=== PATIENT | female | born 1985 | race Caucasian/White ===

== ENCOUNTER 2018-02-16 11:19 | Inpatient (IN) ==
[2018-02-16 11:30] VITALS: BMI 24.9
[2018-02-16 11:49] LABS: BILIRUBIN,URINE NEGATIVE (NEGATIVE); BLOOD/HEMOGLOBIN,URINE 4+ (NEGATIVE); GLUCOSE, URINE NEGATIVE (NEGATIVE); KETONES,URINE 4+ (NEGATIVE); LEUKOCYTE ESTERASE ,URINE 2+ (NEGATIVE); NITRITES,URINE NEGATIVE (NEGATIVE); PROTEIN,URINE 3+ (NEGATIVE); UROBILINOGEN,URINE NORMAL (NORMAL)
[2018-02-16] MEDS ORDERED: ZOFRAN INJ 4 MG VIAL ONE (11:51)
[2018-02-16] MEDS ORDERED: NS 1000 ML 1,000 ML ONE ×2 (11:51→13:12)
[2018-02-16] MEDS ORDERED: ZOFRAN INJ 4 MG VIAL IVP ONE (11:52)
[2018-02-16] MEDS ORDERED: NS 1000 ML 1,000 ML IV ONE ×2 (11:52→13:09)
--- NOTE | 2018-02-16 11:53 | DR.GENAD ---
HPI - PCP Primary Care Physician: NO DOCTOR - Complaint/Symptoms Chief Complaint:: FEVER AND NAUSEA SINCE LAST TUESDAY. STARTED NEW CONTROL MEDS LAST TUESDAY NIGHT ALSO. ALSO HAS PRESSURE WITH URINATION - Nurses notes reviewed Nurses Notes Review: Yes - Source History Provided: Patient - Mode of Arrival Mode of Arrival: Ambulatory - Timing Onset of Chief Complaint: 02/12/18 Came on: Suddenly - Duration Duration: Constant Duration: Days - Severity Severity: Moderate PMH - PMH Past Medical History: No Past Surgical History: Yes Surgical History: HUSBANDRY PERSON Surgery, Tonsillectomy - Family History History of Family Medical Conditions: Yes Family Medical History: Diabetes Mellitus, Cancer, Coronary Artery Disease, Hypertension - Social History Type of Tobacco Use: None Alcohol Use: Rarely Do you use any recreational Drugs:: No Lives With: Family Lives Where: Home - infectious screening In the last 2 months have you had wt loss of >10#?: NO Have you had fever, night sweats or hemotysis?: No Have you traveled outside the country in the last 6 months?: No Isolation: Standard PE - Vital Signs Vitals: Temperature 98.8 F Pulse Rate 105 Respiratory Rate 14 Blood Pressure 109/58 O2 Sat by Pulse Oximetry 98 ROR - Labs Reviewed Result Diagrams: 02/16/18 11:55 02/16/18 11:55 Laboratory: WBC 15.9 X10^3/uL (3.6-10.0) H 02/16/18 11:55 RBC 4.48 X10^6/uL (3.5-5.4) 02/16/18 11:55 Hgb 12.8 g/dL (12.0-16.0) 02/16/18 11:55 Hct 37.4 % (36.0-47.0) 02/16/18 11:55 MCV 83.4 fL (80.0-100.0) 02/16/18 11:55 MCH 28.5 pg (27.0-34.0) 02/16/18 11:55 MCHC 34.2 g/dL (33.0-35.0) 02/16/18 11:55 RDW 12.9 % (11.6-16.5) 02/16/18 11:55 Plt Count 379 X10^3/uL (150.0-450.0) 02/16/18 11:55 MPV 9.7 fL (7.4-11.0) 02/16/18 11:55 Neut % (Auto) 77.7 % (42.0-75.0) H 02/16/18 11:55 Lymph % (Auto) 17.1 % (21.0-51.0) L 02/16/18 11:55 [place] % (Auto) 3.7 % (0.0-13.0) 02/16/18 11:55 Eos % (Auto) 0.6 % (0.9-2.9) L 02/16/18 11:55 Baso % (Auto) 0.9 % (0.2-1.0) 02/16/18 11:55 Neut # (Auto) 12.3 x10^3/uL (2.2-4.8) H 02/16/18 11:55 Lymph # (Auto) 2.7 X10^3/uL (1.3-2.9) 02/16/18 11:55 [place] # (Auto) 0.6 x10^3/uL (0.3-0.8) 02/16/18 11:55 Eos # (Auto) 0.1 x10^3/uL (0.0-0.2) 02/16/18 11:55 Baso # (Auto) 0.1 X10^3/uL (0.0-0.1) 02/16/18 11:55 Absolute Nucleated RBC 0.0 /100WBC 02/16/18 11:55 Sodium 138 mmol/L (136-145) 02/16/18 11:55 Corrected Sodium TNP 02/16/18 11:55 Potassium 3.5 mmol/L (3.5-5.1) 02/16/18 11:55 Chloride 102 mmol/L (98-107) 02/16/18 11:55 Carbon Dioxide 23.4 mmol/L (21-32) 02/16/18 11:55 BUN 18 mg/dL (7-18) 02/16/18 11:55 Creatinine 0.92 mg/dL (0.55-1.02) 02/16/18 11:55 Est GFR (MDRD) Af Amer > 60 (>60) 02/16/18 11:55 Est GFR (MDRD) Non-Af > 60 (>60) 02/16/18 11:55 Glucose 86 mg/dL (65-99) 02/16/18 11:55 Calcium 8.3 mg/dL (8.5-10.1) L 02/16/18 11:55 Corrected Calcium TNP 02/16/18 11:55 Total Bilirubin 0.30 mg/dL (0.2-1.0) 02/16/18 11:55 AST 8 Units/L (15-37) L 02/16/18 11:55 ALT 18 Units/L (12-78) 02/16/18 11:55 Alkaline Phosphatase 94 Units/L (46-116) 02/16/18 11:55 Total Protein 8.5 g/dL (6.4-8.2) H 02/16/18 11:55 Albumin 3.5 g/dL (3.4-5.0) 02/16/18 11:55 Globulin 5.0 g/dL (2.5-4.5) H 02/16/18 11:55 Albumin/Globulin Ratio 0.7 Ratio (1.1-2.1) L 02/16/18 11:55 Amylase 75 Units/L (25-115) 02/16/18 11:55 Lipase 237 Units/L (73-393) 02/16/18 11:55 HCG, Qual Negative <10 mIU/mL 02/16/18 11:55 Specimen Type Clean catch urine 02/16/18 11:43 Urine Color Yellow (YELLOW) 02/16/18 11:43 Urine Appearance Hazy (CLEAR) 02/16/18 11:43 Urine pH 5.0 (5.0 - 8.0) 02/16/18 11:43 Ur Specific [place] 1.020 (1.000-1.030) 02/16/18 11:43 Urine Protein 3+ (NEGATIVE) 02/16/18 11:43 Urine Glucose (UA) Negative (NEGATIVE) 02/16/18 11:43 Urine Ketones 4+ (NEGATIVE) 02/16/18 11:43 Urine Occult Blood 4+ (NEGATIVE) 02/16/18 11:43 Urine Nitrite Negative (NEGATIVE) 02/16/18 11:43 Urine Bilirubin Negative (NEGATIVE) 02/16/18 11:43 Urine Urobilinogen Normal (NORMAL) 02/16/18 11:43 Ur Leukocyte Esterase 2+ (NEGATIVE) 02/16/18 11:43 Urine RBC 10-20 /HPF (NONE SEEN) 02/16/18 11:43 Urine WBC 3-5 /HPF (NONE SEEN) 02/16/18 11:43 Ur Squamous Epith Cells Few /HPF (NEGATIVE) 02/16/18 11:43 Urine Bacteria Trace /HPF (NEGATIVE) 02/16/18 11:43 Ur Culture Indicated? No/not indicated 02/16/18 11:43 - Discharge Plan Condition: Stable - Follow ups/Referrals Follow ups/Referrals: NFD,None [Primary Care Provider] - 3 days - Instructions
[2018-02-16 11:57] LABS: APPEARANCE,URINE HAZY (CLEAR); BACTERIA,URINE TRACE /HPF (NEGATIVE); COLOR,URINE YELLOW (YELLOW); SQUAMOUS EPITHELIAL CELL,UR FEW /HPF (NEGATIVE)
[2018-02-16 12:24] LABS: SERUM PREGNANCY TEST, QUAL NEGATIVE <10 mIU/mL
[2018-02-16 12:25] LABS: BASOPHILS # (AUTO) 0.1 X10^3/uL (0.0-0.1); BASOPHILS % (AUTO) 0.9 % (0.2-1.0); EOSINOPHILS # (AUTO) 0.1 x10^3/uL (0.0-0.2); EOSINOPHILS % (AUTO) 0.6 % (0.9-2.9); HEMATOCRIT 37.4 % (36.0-47.0); HEMOGLOBIN 12.8 g/dL (12.0-16.0); LYMPHOCYTES # (AUTO) 2.7 X10^3/uL (1.3-2.9); LYMPHOCYTES % (AUTO) 17.1 % (21.0-51.0); MEAN CORPUSCULAR HEMOGLOBIN 28.5 pg (27.0-34.0); MEAN CORPUSCULAR HGB CONC 34.2 g/dL (33.0-35.0); MEAN CORPUSCULAR VOLUME 83.4 fL (80.0-100.0); MEAN PLATELET VOLUME 9.7 fL (7.4-11.0); MONOCYTES # (AUTO) 0.6 x10^3/uL (0.3-0.8); MONOCYTES % (AUTO) 3.7 % (0.0-13.0); NEUTROPHILS # (AUTO) 12.3 x10^3/uL (2.2-4.8); NEUTROPHILS % (AUTO) 77.7 % (42.0-75.0); PLATELET COUNT 379 X10^3/uL (150.0-450.0); RED BLOOD COUNT 4.48 X10^6/uL (3.5-5.4); RED CELL DISTRIBUTION WIDTH 12.9 % (11.6-16.5); WHITE BLOOD COUNT 15.9 X10^3/uL (3.6-10.0)
[2018-02-16 12:34] LABS: ALANINE AMINOTRANSFERASE 18 Units/L (12-78); ALBUMIN 3.5 g/dL (3.4-5.0); ALKALINE PHOSPHATASE 94 Units/L (46-116); AMYLASE 75 Units/L (25-115); ASPARTATE AMINO TRANSFERASE 8 Units/L (15-37); BLOOD UREA NITROGEN 18 mg/dL (7-18); CALCIUM 8.3 mg/dL (8.5-10.1); CARBON DIOXIDE 23.4 mmol/L (21-32); CHLORIDE 102 mmol/L (98-107); CREATININE 0.92 mg/dL (0.55-1.02); LIPASE 237 Units/L (73-393); SODIUM 138 mmol/L (136-145); TOTAL PROTEIN 8.5 g/dL (6.4-8.2); eGFR NON BLACK RACES > 60 (>60)
--- NOTE | 2018-02-16 13:49 | CT ---
CT abdomen and pelvis without contrast Indication: Fever and nausea since last Tuesday. Comparison: None Technique: CT images of the abdomen and pelvis were obtained without contrast. Automatic exposure con trol was utilized. Findings: Aside from minimal dependent atelectasis, the lung bases are clear. No acute skeletal abnor mality. Evaluation of the abdominal pelvic viscera is limited without contrast. Accounting for this, the live r, gallbladder, spleen, stomach, duodenum, pancreas, adrenals, and kidneys are unremarkable. No urete ral stones are seen. No significant thickening or dilatation of the lower GI tract. The visualized ap pendix appears within normal limits. The uterus and ovaries are noted. The urinary bladder and rectum are unremarkable. A few shotty right lower quadrant mesenteric lymph nodes are noted. For example, t here is a lymph node on axial image 60 measuring 9 mm in short axis. No bulky adenopathy or free flui d. Impression: Shotty right lower quadrant mesenteric lymph nodes are nonspecific, but can be associated with mesent price adenitis. Correlation recommended. The appendix is normal. Otherwise unremarkable noncontrast CT of the abdomen and pelvis. Reported By:
[2018-02-16] MEDS ORDERED: PEPCID 20 MG IV PREMIX* 20 MG/50 ML BAG IV PRN (15:47)
[2018-02-16] MEDS ORDERED: ZOFRAN INJ 4 MG VIAL IVP PRN (15:47)
[2018-02-16] MEDS ORDERED: ZOSYN VIAL 4.5 GRAMS IV ONE (16:56)
[2018-02-16] MEDS ORDERED: NS 100 ML IV + SPIKE MINIBAG* 100 ML IV ONE (16:57)
[2018-02-16] MEDS: TYLENOL 325 MG TAB PO PRN (17:00)
[2018-02-16] MEDS: NS 1000 ML 1,000 ML IV SCH (17:00)
[2018-02-16] MEDS: ZOSYN VIAL 4.5 GRAMS 4.5 G in NS 100 ML IV + SPIKE MINIBAG* 100 ML IV SCH ×2 (17:00→21:12)
[2018-02-16] MEDS: TORADOL 30 MG VIAL IVP PRN (17:00)
[2018-02-16 17:14] LABS: ALANINE AMINOTRANSFERASE 9 Units/L (12-78); ALKALINE PHOSPHATASE 80 Units/L (46-116); ASPARTATE AMINO TRANSFERASE 9 Units/L (15-37); BLOOD UREA NITROGEN 16 mg/dL (7-18); CALCIUM 7.5 mg/dL (8.5-10.1); CARBON DIOXIDE 18.6 mmol/L (21-32); CHLORIDE 105 mmol/L (98-107); COR CA(FOR HYPOALB) 8.3 mg/dL (8.5-10.1); CREATININE 0.86 mg/dL (0.55-1.02); SODIUM 138 mmol/L (136-145); TOTAL PROTEIN 7.1 g/dL (6.4-8.2); eGFR NON BLACK RACES > 60 (>60)
[2018-02-17 14:09] LABS: ALANINE AMINOTRANSFERASE 14 Units/L (12-78); ALBUMIN 2.6 g/dL (3.4-5.0); ALKALINE PHOSPHATASE 70 Units/L (46-116); ASPARTATE AMINO TRANSFERASE 10 Units/L (15-37); BASOPHILS # (AUTO) 0.1 X10^3/uL (0.0-0.1); BASOPHILS % (AUTO) 0.6 % (0.2-1.0); BLOOD UREA NITROGEN 11 mg/dL (7-18); CALCIUM 7.3 mg/dL (8.5-10.1); CARBON DIOXIDE 23.8 mmol/L (21-32); CHLORIDE 109 mmol/L (98-107); COR CA(FOR HYPOALB) 8.4 mg/dL (8.5-10.1); CREATININE 0.87 mg/dL (0.55-1.02); EOSINOPHILS # (AUTO) 0.4 x10^3/uL (0.0-0.2); EOSINOPHILS % (AUTO) 3.2 % (0.9-2.9); HEMATOCRIT 32.1 % (36.0-47.0); HEMOGLOBIN 10.8 g/dL (12.0-16.0); LYMPHOCYTES # (AUTO) 3.8 X10^3/uL (1.3-2.9); LYMPHOCYTES % (AUTO) 31.9 % (21.0-51.0); MEAN CORPUSCULAR HEMOGLOBIN 28.5 pg (27.0-34.0); MEAN CORPUSCULAR HGB CONC 33.7 g/dL (33.0-35.0); MEAN CORPUSCULAR VOLUME 84.7 fL (80.0-100.0); MONOCYTES # (AUTO) 1.1 x10^3/uL (0.3-0.8); MONOCYTES % (AUTO) 9.4 % (0.0-13.0); NEUTROPHILS # (AUTO) 6.6 x10^3/uL (2.2-4.8); NEUTROPHILS % (AUTO) 54.9 % (42.0-75.0); PLATELET COUNT 335 X10^3/uL (150.0-450.0); RED BLOOD COUNT 3.79 X10^6/uL (3.5-5.4); RED CELL DISTRIBUTION WIDTH 12.9 % (11.6-16.5); SODIUM 141 mmol/L (136-145); TOTAL PROTEIN 6.3 g/dL (6.4-8.2); eGFR NON BLACK RACES > 60 (>60)
[2018-02-17] MEDS: NS 1000 ML 1,000 ML IV SCH ×2 (14:56→21:07)
[2018-02-17] MEDS: ZOSYN VIAL 4.5 GRAMS 4.5 G in NS 100 ML IV + SPIKE MINIBAG* 100 ML IV SCH ×3 (15:23→21:07)
[2018-02-17 16:01] LABS: STOOL FOR WBC POSITIVE (NEGATIVE)
[2018-02-17 16:25] LABS: CRYPTOSPORIDIUM PARVUM ANTIGEN NEGATIVE (NEGATIVE); GIARDIA LAMBLIA ANTIGEN NEGATIVE (NEGATIVE)
[2018-02-17] MEDS: TORADOL 30 MG VIAL IVP PRN (16:42)
[2018-02-18] MEDS: ZOSYN VIAL 4.5 GRAMS 4.5 G in NS 100 ML IV + SPIKE MINIBAG* 100 ML IV SCH ×3 (05:01→21:36)
--- NOTE | 2018-02-18 06:35 | DR.H&P ---
H&P - History & Physical for Day of: H&P Date: 02/16/18 - Chief Complaint Chief Complaint: NVD, ABDOMINAL PAIN, WEAKNESS - History of Present Illness History of Present Illness: 32 WF ER ADMISSION AFTER PRESENTING WITH CO ABDOMINAL PAIN, NVD AND FEVER. PT STATES SHE FELT ILL FOR SEVERAL DAYS, WEAKNESS , LOW GRADE FEVER FATIGUE THEN PROGRESSED TO ABDOMINAL PAIN, NVD. PT DENIES ANY PMH OF INFLAMMATORY BOWEL DISEASE, HOWEVER HAS HAD "STOMACH PROBLEMS" FOR YEARS NO COLONSCOPY OR EGD. PT OTHERWISE HEALTHY. ABNORMAL CT ABD. PT ADMITTED FOR IV ATBX AND FURTHER EVALUATION FOR ACUTE ILLNESS. - Past Medical History Additional Medical History: IBS - Past Surgical History Surgical History: [employer] Surgery, Tonsillectomy - Family History Family Medical History: Diabetes Mellitus, Cancer, Coronary Artery Disease, Hypertension - Social History Does patient currently use any type of tobacco product: No Have you used tobacco products in the last 12 months: No Type of Tobacco Use: None Does any household member use tobacco: No Alcohol Use: None Drug Use: Prescription Drugs - Medications Home Medications: NK 02/16/18 [History Confirmed 02/16/18] - Review of Systems Constitutional: Fever, Weakness, Malaise Eyes: No Symptoms Reported ENT: No Symptoms Reported Respiratory: No Symptoms Reported Cardiovascular: No Symptoms Reported Gastrointestinal: Nausea, Vomiting, Abdominal Pain, Diarrhea Genitourinary: No Symptoms Reported Musculoskeletal: No Symptoms Reported Skin: No Symptoms Reported Neurological: Weakness - Physical Exam Vital Signs: Temperature 99.2 F Pulse Rate [Right Brachial] 78 Pulse Rate 89 Respiratory Rate 20 Blood Pressure [Right Arm] 118/66 Blood Pressure 109/58 O2 Sat by Pulse Oximetry 97 Oriented: Normal Eyes: Normal Ear: Normal Nose: Normal Throat: Normal Respiratory: Clear Throughout Cardiovascular: Normal : Normal Auscultation: Bowel Sounds: Normal Palpation: Normal Skin: Normal Musculoskeletal: Normal Psychiatric: Normal Speech Pattern: Clear, Appropriate - Assessment/Plan (1) Abdominal pain Status: Acute Plan: ADMIT, IV ATBX, IV HYDRATION. ADMISSION LABS CBC CMP, REPEAT AM LABS. PAIN AND NAUSEA CONTROL. UA, SED RATE CRP. STOOL STUDIES (2) Nausea & vomiting Status: Acute (3) Diarrhea Status: Acute - Allergies Allergies/Adverse Reactions: Allergies Allergy/AdvReac Type Severity Reaction Status Date / Time bacitracin AdvReac Verified 02/16/18 11:31 neomycin AdvReac Verified 02/16/18 11:31
[2018-02-18 06:37] LABS: BASOPHILS # (AUTO) 0.1 X10^3/uL (0.0-0.1); BASOPHILS % (AUTO) 0.8 % (0.2-1.0); EOSINOPHILS # (AUTO) 0.4 x10^3/uL (0.0-0.2); EOSINOPHILS % (AUTO) 3.3 % (0.9-2.9); HEMATOCRIT 29.3 % (36.0-47.0); LYMPHOCYTES # (AUTO) 3.4 X10^3/uL (1.3-2.9); LYMPHOCYTES % (AUTO) 28.8 % (21.0-51.0); MEAN CORPUSCULAR HEMOGLOBIN 28.6 pg (27.0-34.0); MEAN CORPUSCULAR HGB CONC 34.3 g/dL (33.0-35.0); MEAN CORPUSCULAR VOLUME 83.5 fL (80.0-100.0); MEAN PLATELET VOLUME 10.3 fL (7.4-11.0); MONOCYTES # (AUTO) 0.7 x10^3/uL (0.3-0.8); MONOCYTES % (AUTO) 6.1 % (0.0-13.0); NEUTROPHILS # (AUTO) 7.1 x10^3/uL (2.2-4.8); PLATELET COUNT 301 X10^3/uL (150.0-450.0); RED BLOOD COUNT 3.51 X10^6/uL (3.5-5.4); RED CELL DISTRIBUTION WIDTH 13.2 % (11.6-16.5); WHITE BLOOD COUNT 11.7 X10^3/uL (3.6-10.0)
[2018-02-18 06:39] LABS: ALBUMIN 2.5 g/dL (3.4-5.0); ALKALINE PHOSPHATASE 65 Units/L (46-116); ASPARTATE AMINO TRANSFERASE 11 Units/L (15-37); BLOOD UREA NITROGEN 8 mg/dL (7-18); CHLORIDE 109 mmol/L (98-107); COR CA(FOR HYPOALB) 8.2 mg/dL (8.5-10.1); SODIUM 141 mmol/L (136-145); eGFR NON BLACK RACES > 60 (>60)
[2018-02-18 07:16] LABS: ALANINE AMINOTRANSFERASE 14 Units/L (12-78); CARBON DIOXIDE 22.4 mmol/L (21-32); CREATININE 0.91 mg/dL (0.55-1.02); TOTAL PROTEIN 6.1 g/dL (6.4-8.2)
--- NOTE | 2018-02-18 13:27 | PCM.PROG ---
Progress Note - Progress Note for Day of Date: 02/17/18 - Subjective Subjective: 32 WF ER ADMISSION ON 02/16 WITH NVD, WEAKNESS, DEHYDRATION. PT WBC IMPROVING, PT DENIES PAIN AND IMPROVING NAUSEA. PT CONTINUES WITH DIARRHEA. PT HAS STOOL STUDIES ORDERED. PLAN TO CONTINUE IV ATBX. - Past Medical Family Social History Past Med/Fam/Surg Hx: No changes since H&P Allergies: Allergies bacitracin Adverse Reaction (Verified 02/16/18 11:31) neomycin Adverse Reaction (Verified 02/16/18 11:31) - Vital Signs and I&O's Vital Signs: Temperature 98.9 F Pulse Rate [Right Brachial] 70 Pulse Rate 89 Respiratory Rate 20 Blood Pressure [Right Arm] 112/73 Blood Pressure 109/58 O2 Sat by Pulse Oximetry 98 Intake and Output: Intake & Output 02/16/18 02/17/18 02/18/18 02/19/18 11:59 11:59 11:59 11:59 Intake Total 1050 / 1050 3911 / 3911 Balance 1050 / 1050 3911 / 3911 - Physical Exam Oriented: Normal Eyes: Normal Ear: Normal Nose: Normal Throat: Normal Respiratory: Normal Cardiovascular: Normal : Normal Auscultation: Bowel Sounds: Normal Tenderness: LUQ, Mild Skin: Normal Musculoskeletal: Normal Psychiatric: Normal Speech Pattern: Clear, Appropriate - Laboratory and Diagnostics Result Diagrams: 02/18/18 04:33 02/18/18 04:33 Labs: 02/17/18 15:06 Stool Stool Culture - Preliminary 02/17/18 15:06 Stool - Final Laboratory WBC 11.7 X10^3/uL (3.6-10.0) H 02/18/18 04:33 RBC 3.51 X10^6/uL (3.5-5.4) 02/18/18 04:33 Hgb 10.0 g/dL (12.0-16.0) L 02/18/18 04:33 Hct 29.3 % (36.0-47.0) L 02/18/18 04:33 MCV 83.5 fL (80.0-100.0) 02/18/18 04:33 MCH 28.6 pg (27.0-34.0) 02/18/18 04:33 MCHC 34.3 g/dL (33.0-35.0) 02/18/18 04:33 RDW 13.2 % (11.6-16.5) 02/18/18 04:33 Plt Count 301 X10^3/uL (150.0-450.0) 02/18/18 04:33 MPV 10.3 fL (7.4-11.0) 02/18/18 04:33 Neut % (Auto) 61.0 % (42.0-75.0) 02/18/18 04:33 Lymph % (Auto) 28.8 % (21.0-51.0) 02/18/18 04:33 [place] % (Auto) 6.1 % (0.0-13.0) 02/18/18 04:33 Eos % (Auto) 3.3 % (0.9-2.9) H 02/18/18 04:33 Baso % (Auto) 0.8 % (0.2-1.0) 02/18/18 04:33 Neut # (Auto) 7.1 x10^3/uL (2.2-4.8) H 02/18/18 04:33 Lymph # (Auto) 3.4 X10^3/uL (1.3-2.9) H 02/18/18 04:33 [place] # (Auto) 0.7 x10^3/uL (0.3-0.8) 02/18/18 04:33 Eos # (Auto) 0.4 x10^3/uL (0.0-0.2) H 02/18/18 04:33 Baso # (Auto) 0.1 X10^3/uL (0.0-0.1) 02/18/18 04:33 Absolute Nucleated RBC 0.1 /100WBC 02/18/18 04:33 ESR 21 MM/HOUR (0-20) H 02/17/18 19:20 Sodium 141 mmol/L (136-145) 02/18/18 04:33 Corrected Sodium TNP 02/18/18 04:33 Potassium 3.5 mmol/L (3.5-5.1) 02/18/18 04:33 Chloride 109 mmol/L (98-107) H 02/18/18 04:33 Carbon Dioxide 22.4 mmol/L (21-32) 02/18/18 04:33 BUN 8 mg/dL (7-18) 02/18/18 04:33 Creatinine 0.91 mg/dL (0.55-1.02) 02/18/18 04:33 Est GFR (MDRD) Af Amer > 60 (>60) 02/18/18 04:33 Est GFR (MDRD) Non-Af > 60 (>60) 02/18/18 04:33 Glucose 95 mg/dL (65-99) 02/18/18 04:33 Calcium 7.0 mg/dL (8.5-10.1) L 02/18/18 04:33 Corrected Calcium 8.2 mg/dL (8.5-10.1) L 02/18/18 04:33 Total Bilirubin 0.30 mg/dL (0.2-1.0) 02/18/18 04:33 AST 11 Units/L (15-37) L 02/18/18 04:33 ALT 14 Units/L (12-78) 02/18/18 04:33 Alkaline Phosphatase 65 Units/L (46-116) 02/18/18 04:33 C-Reactive Protein 9.10 mg/L (0-3.0) H 02/17/18 19:20 Total Protein 6.1 g/dL (6.4-8.2) L 02/18/18 04:33 Albumin 2.5 g/dL (3.4-5.0) L 02/18/18 04:33 Globulin 3.6 g/dL (2.5-4.5) 02/18/18 04:33 Albumin/Globulin Ratio 0.7 Ratio (1.1-2.1) L 02/18/18 04:33 Amylase 75 Units/L (25-115) 02/16/18 11:55 Lipase 237 Units/L (73-393) 02/16/18 11:55 HCG, Qual Negative <10 mIU/mL 02/16/18 11:55 Specimen Type Clean catch urine 02/16/18 11:43 Urine Color Yellow (YELLOW) 02/16/18 11:43 Urine Appearance Hazy (CLEAR) 02/16/18 11:43 Urine pH 5.0 (5.0 - 8.0) 02/16/18 11:43 Ur Specific [place] 1.020 (1.000-1.030) 02/16/18 11:43 Urine Protein 3+ (NEGATIVE) 02/16/18 11:43 Urine Glucose (UA) Negative (NEGATIVE) 02/16/18 11:43 Urine Ketones 4+ (NEGATIVE) 02/16/18 11:43 Urine Occult Blood 4+ (NEGATIVE) 02/16/18 11:43 Urine Nitrite Negative (NEGATIVE) 02/16/18 11:43 Urine Bilirubin Negative (NEGATIVE) 02/16/18 11:43 Urine Urobilinogen Normal (NORMAL) 02/16/18 11:43 Ur Leukocyte Esterase 2+ (NEGATIVE) 02/16/18 11:43 Urine RBC 10-20 /HPF (NONE SEEN) 02/16/18 11:43 Urine WBC 3-5 /HPF (NONE SEEN) 02/16/18 11:43 Ur Squamous Epith Cells Few /HPF (NEGATIVE) 02/16/18 11:43 Urine Bacteria Trace /HPF (NEGATIVE) 02/16/18 11:43 Ur Culture Indicated? No/not indicated 02/16/18 11:43 Stool Description 20g soft brown stool 02/17/18 15:06 Stl Occult Blood (IFOB) Negative (NEGATIVE) 02/17/18 15:06 Stool for White Cells Positive (NEGATIVE) A 02/17/18 15:06 Stl C. diff Tox B Gene Negative (NEGATIVE) 02/17/18 15:06 Stl C. diff [id number] Negative (NEGATIVE) 02/17/18 15:06 Cryptosporid parvum Ag Negative (NEGATIVE) 02/17/18 15:06 E. histolytica Antigen Negative (NEGATIVE) 02/17/18 15:06 Giardia lamblia Ag Negative (NEGATIVE) 02/17/18 15:06 - Plan (1) Abdominal pain Status: Acute Plan: IV ATBX, IV HYDRATION. AM LABS CBC CMP,. PAIN AND NAUSEA CONTROL. UA, SED RATE CRP. STOOL STUDIES (2) Nausea & vomiting Status: Acute (3) Diarrhea Status: Acute
[2018-02-18] MEDS: NS 1000 ML 1,000 ML IV SCH (14:00)
[2018-02-19] MEDS: ZOSYN VIAL 4.5 GRAMS 4.5 G in NS 100 ML IV + SPIKE MINIBAG* 100 ML IV SCH ×3 (05:06→21:07)
[2018-02-19] MEDS: NS 1000 ML 1,000 ML IV SCH ×2 (05:07→10:21)
[2018-02-19 06:09] LABS: BASOPHILS # (AUTO) 0.1 X10^3/uL (0.0-0.1); BASOPHILS % (AUTO) 0.8 % (0.2-1.0); EOSINOPHILS # (AUTO) 0.5 x10^3/uL (0.0-0.2); EOSINOPHILS % (AUTO) 3.1 % (0.9-2.9); HEMATOCRIT 28.7 % (36.0-47.0); LYMPHOCYTES # (AUTO) 5.1 X10^3/uL (1.3-2.9); LYMPHOCYTES % (AUTO) 34.1 % (21.0-51.0); MEAN CORPUSCULAR HEMOGLOBIN 28.9 pg (27.0-34.0); MEAN CORPUSCULAR HGB CONC 34.8 g/dL (33.0-35.0); MEAN CORPUSCULAR VOLUME 83.2 fL (80.0-100.0); MEAN PLATELET VOLUME 10.3 fL (7.4-11.0); MONOCYTES % (AUTO) 6.8 % (0.0-13.0); NEUTROPHILS # (AUTO) 8.2 x10^3/uL (2.2-4.8); NEUTROPHILS % (AUTO) 55.2 % (42.0-75.0); PLATELET COUNT 277 X10^3/uL (150.0-450.0); RED BLOOD COUNT 3.46 X10^6/uL (3.5-5.4); RED CELL DISTRIBUTION WIDTH 13.1 % (11.6-16.5); WHITE BLOOD COUNT 14.8 X10^3/uL (3.6-10.0)
[2018-02-19 06:30] LABS: ALANINE AMINOTRANSFERASE 19 Units/L (12-78); ALBUMIN 2.5 g/dL (3.4-5.0); ALKALINE PHOSPHATASE 81 Units/L (46-116); ASPARTATE AMINO TRANSFERASE 17 Units/L (15-37); BLOOD UREA NITROGEN 6 mg/dL (7-18); CALCIUM 7.2 mg/dL (8.5-10.1); CARBON DIOXIDE 25.4 mmol/L (21-32); CHLORIDE 109 mmol/L (98-107); COR CA(FOR HYPOALB) 8.4 mg/dL (8.5-10.1); CREATININE 0.89 mg/dL (0.55-1.02); SODIUM 141 mmol/L (136-145); eGFR NON BLACK RACES > 60 (>60)
[2018-02-19] MEDS: TYLENOL 325 MG TAB PO PRN (13:18)
[2018-02-20] MEDS ORDERED: ZOSYN VIAL 4.5 GRAMS IV ONE ×2 (04:43→13:41)
[2018-02-20] MEDS ORDERED: NS 100 ML IV + SPIKE MINIBAG* 100 ML IV ONE ×2 (04:43→13:41)
[2018-02-20] MEDS ORDERED: NS 1000 ML 1,000 ML ONE (04:43)
[2018-02-20] MEDS: NS 1000 ML 1,000 ML IV SCH (05:04)
[2018-02-20] MEDS: ZOSYN VIAL 4.5 GRAMS 4.5 G in NS 100 ML IV + SPIKE MINIBAG* 100 ML IV SCH ×3 (05:04→22:00)
[2018-02-20 06:17] LABS: BASOPHILS # (AUTO) 0.1 X10^3/uL (0.0-0.1); BASOPHILS % (AUTO) 0.6 % (0.2-1.0); EOSINOPHILS # (AUTO) 0.3 x10^3/uL (0.0-0.2); EOSINOPHILS % (AUTO) 1.8 % (0.9-2.9); HEMATOCRIT 31.5 % (36.0-47.0); HEMOGLOBIN 10.9 g/dL (12.0-16.0); LYMPHOCYTES # (AUTO) 4.8 X10^3/uL (1.3-2.9); LYMPHOCYTES % (AUTO) 32.2 % (21.0-51.0); MEAN CORPUSCULAR HEMOGLOBIN 28.6 pg (27.0-34.0); MEAN CORPUSCULAR HGB CONC 34.6 g/dL (33.0-35.0); MEAN CORPUSCULAR VOLUME 82.7 fL (80.0-100.0); MEAN PLATELET VOLUME 10.9 fL (7.4-11.0); MONOCYTES # (AUTO) 0.7 x10^3/uL (0.3-0.8); MONOCYTES % (AUTO) 4.5 % (0.0-13.0); NEUTROPHILS # (AUTO) 9.1 x10^3/uL (2.2-4.8); NEUTROPHILS % (AUTO) 60.9 % (42.0-75.0); PLATELET COUNT 282 X10^3/uL (150.0-450.0); RED BLOOD COUNT 3.81 X10^6/uL (3.5-5.4)
[2018-02-20 06:46] LABS: ALANINE AMINOTRANSFERASE 25 Units/L (12-78); ALBUMIN 2.9 g/dL (3.4-5.0); ALKALINE PHOSPHATASE 95 Units/L (46-116); ASPARTATE AMINO TRANSFERASE 17 Units/L (15-37); BLOOD UREA NITROGEN 6 mg/dL (7-18); CALCIUM 7.7 mg/dL (8.5-10.1); CARBON DIOXIDE 22.9 mmol/L (21-32); CHLORIDE 107 mmol/L (98-107); COR CA(FOR HYPOALB) 8.6 mg/dL (8.5-10.1); CREATININE 0.85 mg/dL (0.55-1.02); SODIUM 142 mmol/L (136-145); TOTAL PROTEIN 6.7 g/dL (6.4-8.2); eGFR NON BLACK RACES > 60 (>60)
[2018-02-20] MEDS ORDERED: ROCEPHIN 1 GRAM IV PREMIX 1 GM/50 ML IV.SOLN. IV ONE (08:30)
[2018-02-20] MEDS ORDERED: CIPRO IV 400 MG PREMIX* 400 MG/200 ML IV.SOLN. IV ONE (10:37)
[2018-02-20] MEDS ORDERED: TORADOL 30 MG VIAL ONE (10:37)
[2018-02-20] MEDS: CIPRO IV 400 MG PREMIX* 400 MG/200 ML IV.SOLN. IV SCH ×2 (10:41→20:38)
[2018-02-20] MEDS: TORADOL 30 MG VIAL IVP PRN (10:41)
[2018-02-20] MEDS ORDERED: ZOFRAN INJ 4 MG VIAL ONE (10:49)
--- NOTE | 2018-02-20 12:22 | PCM.PROG ---
Progress Note - Progress Note for Day of Date: 02/19/18 - Subjective Subjective: 32 WF ER ADMISSION ON 02/16 WITH NVD, WEAKNESS, DEHYDRATION. PT WBC IMPROVING, PT DENIES PAIN AND IMPROVING NAUSEA. PT CONTINUES WITH LOOSE STOOL, REPORTING MUCOUS IN STOOL LAST PM. PT WBC ELEVATED TO 14.7 WITH CO FEELING FATIGUED THIS AM, AND LOW GRADE TEMP DURING THE NIGHT. CT ABD/PELVIS ORDERED, REPEAT AM LABS - Past Medical Family Social History Past Med/Fam/Surg Hx: No changes since H&P Allergies: Allergies bacitracin Adverse Reaction (Verified 02/16/18 11:31) neomycin Adverse Reaction (Verified 02/16/18 11:31) - Vital Signs and I&O's Vital Signs: Temperature 98.9 F Pulse Rate [Right Brachial] 50 Pulse Rate 89 Respiratory Rate 18 Blood Pressure [Right Thigh] 149/84 Blood Pressure [Right Arm] 121/73 Blood Pressure 109/58 O2 Sat by Pulse Oximetry 98 Intake and Output: Intake & Output 02/18/18 02/19/18 02/20/18 02/21/18 11:59 11:59 11:59 11:59 Intake Total 3911 / 3911 3404 / 3404 1620 / 1620 Balance 3911 / 3911 3404 / 3404 1620 / 1620 - Physical Exam Oriented: Normal Eyes: Normal Ear: Normal Nose: Normal Throat: Normal Respiratory: Normal Cardiovascular: Normal : Normal Auscultation: Bowel Sounds: Normal Tenderness: LUQ, Mild Skin: Normal Musculoskeletal: Normal Psychiatric: Normal Speech Pattern: Clear, Appropriate - Laboratory and Diagnostics Result Diagrams: 02/20/18 05:20 02/20/18 05:20 Labs: 02/18/18 21:16 Stool Stool Culture - Preliminary 02/18/18 21:16 Stool - Final 02/17/18 15:06 Stool Stool Culture - Final 02/17/18 15:06 Stool - Final Laboratory WBC 15.0 X10^3/uL (3.6-10.0) H 02/20/18 05:20 RBC 3.81 X10^6/uL (3.5-5.4) 02/20/18 05:20 Hgb 10.9 g/dL (12.0-16.0) L 02/20/18 05:20 Hct 31.5 % (36.0-47.0) L 02/20/18 05:20 MCV 82.7 fL (80.0-100.0) 02/20/18 05:20 MCH 28.6 pg (27.0-34.0) 02/20/18 05:20 MCHC 34.6 g/dL (33.0-35.0) 02/20/18 05:20 RDW 13.0 % (11.6-16.5) 02/20/18 05:20 Plt Count 282 X10^3/uL (150.0-450.0) 02/20/18 05:20 MPV 10.9 fL (7.4-11.0) 02/20/18 05:20 Neut % (Auto) 60.9 % (42.0-75.0) 02/20/18 05:20 Lymph % (Auto) 32.2 % (21.0-51.0) 02/20/18 05:20 [place] % (Auto) 4.5 % (0.0-13.0) 02/20/18 05:20 Eos % (Auto) 1.8 % (0.9-2.9) 02/20/18 05:20 Baso % (Auto) 0.6 % (0.2-1.0) 02/20/18 05:20 Neut # (Auto) 9.1 x10^3/uL (2.2-4.8) H 02/20/18 05:20 Lymph # (Auto) 4.8 X10^3/uL (1.3-2.9) H 02/20/18 05:20 [place] # (Auto) 0.7 x10^3/uL (0.3-0.8) 02/20/18 05:20 Eos # (Auto) 0.3 x10^3/uL (0.0-0.2) H 02/20/18 05:20 Baso # (Auto) 0.1 X10^3/uL (0.0-0.1) 02/20/18 05:20 Absolute Nucleated RBC 0.1 /100WBC 02/20/18 05:20 ESR 24 MM/HOUR (0-20) H 02/18/18 19:45 Sodium 142 mmol/L (136-145) 02/20/18 05:20 Corrected Sodium TNP 02/20/18 05:20 Potassium 3.3 mmol/L (3.5-5.1) L 02/20/18 05:20 Chloride 107 mmol/L (98-107) 02/20/18 05:20 Carbon Dioxide 22.9 mmol/L (21-32) 02/20/18 05:20 BUN 6 mg/dL (7-18) L 02/20/18 05:20 Creatinine 0.85 mg/dL (0.55-1.02) 02/20/18 05:20 Est GFR (MDRD) Af Amer > 60 (>60) 02/20/18 05:20 Est GFR (MDRD) Non-Af > 60 (>60) 02/20/18 05:20 Glucose 100 mg/dL (65-99) H 02/20/18 05:20 Calcium 7.7 mg/dL (8.5-10.1) L 02/20/18 05:20 Corrected Calcium 8.6 mg/dL (8.5-10.1) 02/20/18 05:20 Total Bilirubin 0.20 mg/dL (0.2-1.0) 02/20/18 05:20 AST 17 Units/L (15-37) 02/20/18 05:20 ALT 25 Units/L (12-78) 02/20/18 05:20 Alkaline Phosphatase 95 Units/L (46-116) 02/20/18 05:20 C-Reactive Protein 6.40 mg/L (0-3.0) H 02/18/18 19:45 Total Protein 6.7 g/dL (6.4-8.2) 02/20/18 05:20 Albumin 2.9 g/dL (3.4-5.0) L 02/20/18 05:20 Globulin 3.8 g/dL (2.5-4.5) 02/20/18 05:20 Albumin/Globulin Ratio 0.8 Ratio (1.1-2.1) L 02/20/18 05:20 Amylase 75 Units/L (25-115) 02/16/18 11:55 Lipase 237 Units/L (73-393) 02/16/18 11:55 HCG, Qual Negative <10 mIU/mL 02/16/18 11:55 Specimen Type Clean catch urine 02/16/18 11:43 Urine Color Yellow (YELLOW) 02/16/18 11:43 Urine Appearance Hazy (CLEAR) 02/16/18 11:43 Urine pH 5.0 (5.0 - 8.0) 02/16/18 11:43 Ur Specific [place] 1.020 (1.000-1.030) 02/16/18 11:43 Urine Protein 3+ (NEGATIVE) 02/16/18 11:43 Urine Glucose (UA) Negative (NEGATIVE) 02/16/18 11:43 Urine Ketones 4+ (NEGATIVE) 02/16/18 11:43 Urine Occult Blood 4+ (NEGATIVE) 02/16/18 11:43 Urine Nitrite Negative (NEGATIVE) 02/16/18 11:43 Urine Bilirubin Negative (NEGATIVE) 02/16/18 11:43 Urine Urobilinogen Normal (NORMAL) 02/16/18 11:43 Ur Leukocyte Esterase 2+ (NEGATIVE) 02/16/18 11:43 Urine RBC 10-20 /HPF (NONE SEEN) 02/16/18 11:43 Urine WBC 3-5 /HPF (NONE SEEN) 02/16/18 11:43 Ur Squamous Epith Cells Few /HPF (NEGATIVE) 02/16/18 11:43 Urine Bacteria Trace /HPF (NEGATIVE) 02/16/18 11:43 Ur Culture Indicated? No/not indicated 02/16/18 11:43 Stool Description 10g drk yellow lqd 02/18/18 21:16 Stl Occult Blood (IFOB) Negative (NEGATIVE) 02/18/18 21:16 Stool for White Cells Positive (NEGATIVE) A 02/17/18 15:06 Stl C. diff Tox B Gene Negative (NEGATIVE) 02/17/18 15:06 Stl C. diff [id number] Negative (NEGATIVE) 02/17/18 15:06 Cryptosporid parvum Ag Negative (NEGATIVE) 02/17/18 15:06 E. histolytica Antigen Negative (NEGATIVE) 02/17/18 15:06 Giardia lamblia Ag Negative (NEGATIVE) 02/17/18 15:06 - Plan (1) Abdominal pain Status: Acute Plan: IV ATBX, IV HYDRATION. AM LABS CBC CMP,. PAIN AND NAUSEA CONTROL. UA, REPEAT SED RATE CRP. STOOL STUDIES, CT ABD PELVIS Q AM (2) Nausea & vomiting Status: Acute (3) Diarrhea Status: Acute Plan: STOOL STUDIES
[2018-02-20 13:17] LABS: LACTIC ACID 1.1 mmol/L (0.4-2.0)
[2018-02-20 14:45] LABS: BILIRUBIN,URINE NEGATIVE (NEGATIVE); BLOOD/HEMOGLOBIN,URINE NEGATIVE (NEGATIVE); GLUCOSE, URINE NEGATIVE (NEGATIVE); KETONES,URINE NEGATIVE (NEGATIVE); LEUKOCYTE ESTERASE ,URINE NEGATIVE (NEGATIVE); NITRITES,URINE NEGATIVE (NEGATIVE); PROTEIN,URINE NEGATIVE (NEGATIVE); UROBILINOGEN,URINE NORMAL (NORMAL)
[2018-02-20 14:47] LABS: APPEARANCE,URINE CLEAR (CLEAR); COLOR,URINE STRAW (YELLOW)
[2018-02-20 16:09] LABS: FREE T4 (FREE THYROXINE) 1.55 ng/dL (0.76-1.46); TSH (3RD GENERATION) 1.149 uIU/mL (0.358-3.74)
[2018-02-20] MEDS ORDERED: NS 100 ML IV 100 ML IV ONE (17:14)
--- NOTE | 2018-02-20 18:25 | CT ---
HISTORY: Abdominal pain. Mesenteric adenitis. Study: CT abdomen and pelvis with contrast. Comparison: 02/16/2018. Technique: Multiple axial images of the abdomen and pelvis were obtained from the lung bases to the p ubic symphysis after the administration of IV contrast. Findings: There are small bilateral pleural effusions with associated compressive atelectasis. The li nidia is enlarged with diffuse heterogeneous appearance. There is no intra or extrahepatic biliary duct al dilatation. The gallbladder is incompletely distended with mucosal enhancement and diffuse gallbla dder wall thickening. The pancreas, adrenal glands and kidneys are normal in their CT appearance. The spleen is small in size, but otherwise grossly unremarkable. The appendix is normal and filled with contrast. There is diffuse thickening of the wall of the terminal ileum with small amount of nonspeci fic free fluid within the pelvis. There are a few prominent right lower quadrant and central mesenter ic lymph nodes. The colon is grossly unremarkable. There is no small bowel dilatation. There is no in traperitoneal free air. There are physiologic changes of the uterus which is retroverted. The urinary bladder is partially distended and grossly unremarkable. The abdominal aorta is within normal limits . The bony structures are grossly intact. IMPRESSION: Hepatomegaly with diffuse heterogeneous enhancement of the liver suggesting underlying hepatic pathol ogy. Whether findings reflect an acute or chronic process is uncertain and should be correlated with clinical history and laboratory analysis. Diffuse gallbladder wall thickening with associated mucosal enhancement. Whether findings reflect acu te gallbladder pathology or are reactive to an underlying hepatic process is uncertain. Gallbladder u ltrasound may be of further diagnostic benefit. Nonspecific thickening of the wall of the terminal ileum which could reflect an inflammatory or infec tious process. Correlation for inflammatory bowel disease/Crohn's disease is requested. Small bilateral pleural effusions. Reported By:
--- NOTE | 2018-02-20 18:30 | PCM.PROG ---
Progress Note - Progress Note for Day of Date: 02/20/18 - Subjective Subjective: 32 WF ER ADMISSION ON 02/16 WITH NVD, WEAKNESS, DEHYDRATION. PT WBC IMPROVING, PT DENIES PAIN AND IMPROVING NAUSEA. PT CONTINUES WITH LOOSE STOOL, REPORTING MUCOUS IN STOOL LAST PM. PT WBC ELEVATED TO 15 WITH CO FEELING FATIGUED THIS AM, AND LOW GRADE TEMP DURING THE NIGHT. CT ABD/PELVIS ORDERED, BUT PENDING DUE TO INSURANCE - Past Medical Family Social History Past Med/Fam/Surg Hx: No changes since H&P Allergies: Allergies bacitracin Adverse Reaction (Verified 02/16/18 11:31) neomycin Adverse Reaction (Verified 02/16/18 11:31) - Vital Signs and I&O's Vital Signs: Temperature 98.6 F Pulse Rate [Right Brachial] 52 Pulse Rate 89 Respiratory Rate 18 Blood Pressure [Right Thigh] 122/84 Blood Pressure [Right Arm] 140/94 Blood Pressure 109/58 O2 Sat by Pulse Oximetry 97 Intake and Output: Intake & Output 02/18/18 02/19/18 02/20/18 02/21/18 11:59 11:59 11:59 11:59 Intake Total 3911 / 3911 3404 / 3404 1620 / 1620 0 / 0 Balance 3911 / 3911 3404 / 3404 1620 / 1620 0 / 0 - Physical Exam Oriented: Normal Eyes: Normal Ear: Normal Nose: Normal Throat: Normal Respiratory: Normal Cardiovascular: Normal : Normal Auscultation: Bowel Sounds: Normal Tenderness: LUQ, Mild Skin: Normal Musculoskeletal: Normal Psychiatric: Normal Speech Pattern: Clear, Appropriate - Laboratory and Diagnostics Result Diagrams: 02/20/18 05:20 02/20/18 05:20 Labs: 02/18/18 21:16 Stool Stool Culture - Preliminary 02/18/18 21:16 Stool - Final 02/17/18 15:06 Stool Stool Culture - Final 02/17/18 15:06 Stool - Final Laboratory WBC 15.0 X10^3/uL (3.6-10.0) H 02/20/18 05:20 RBC 3.81 X10^6/uL (3.5-5.4) 02/20/18 05:20 Hgb 10.9 g/dL (12.0-16.0) L 02/20/18 05:20 Hct 31.5 % (36.0-47.0) L 02/20/18 05:20 MCV 82.7 fL (80.0-100.0) 02/20/18 05:20 MCH 28.6 pg (27.0-34.0) 02/20/18 05:20 MCHC 34.6 g/dL (33.0-35.0) 02/20/18 05:20 RDW 13.0 % (11.6-16.5) 02/20/18 05:20 Plt Count 282 X10^3/uL (150.0-450.0) 02/20/18 05:20 MPV 10.9 fL (7.4-11.0) 02/20/18 05:20 Neut % (Auto) 60.9 % (42.0-75.0) 02/20/18 05:20 Lymph % (Auto) 32.2 % (21.0-51.0) 02/20/18 05:20 [place] % (Auto) 4.5 % (0.0-13.0) 02/20/18 05:20 Eos % (Auto) 1.8 % (0.9-2.9) 02/20/18 05:20 Baso % (Auto) 0.6 % (0.2-1.0) 02/20/18 05:20 Neut # (Auto) 9.1 x10^3/uL (2.2-4.8) H 02/20/18 05:20 Lymph # (Auto) 4.8 X10^3/uL (1.3-2.9) H 02/20/18 05:20 [place] # (Auto) 0.7 x10^3/uL (0.3-0.8) 02/20/18 05:20 Eos # (Auto) 0.3 x10^3/uL (0.0-0.2) H 02/20/18 05:20 Baso # (Auto) 0.1 X10^3/uL (0.0-0.1) 02/20/18 05:20 Absolute Nucleated RBC 0.1 /100WBC 02/20/18 05:20 ESR 25 MM/HOUR (0-20) H 02/20/18 12:36 Sodium 142 mmol/L (136-145) 02/20/18 05:20 Corrected Sodium TNP 02/20/18 05:20 Potassium 3.3 mmol/L (3.5-5.1) L 02/20/18 05:20 Chloride 107 mmol/L (98-107) 02/20/18 05:20 Carbon Dioxide 22.9 mmol/L (21-32) 02/20/18 05:20 BUN 6 mg/dL (7-18) L 02/20/18 05:20 Creatinine 0.85 mg/dL (0.55-1.02) 02/20/18 05:20 Est GFR (MDRD) Af Amer > 60 (>60) 02/20/18 05:20 Est GFR (MDRD) Non-Af > 60 (>60) 02/20/18 05:20 Glucose 100 mg/dL (65-99) H 02/20/18 05:20 Lactic Acid 1.1 mmol/L (0.4-2.0) 02/20/18 12:36 Calcium 7.7 mg/dL (8.5-10.1) L 02/20/18 05:20 Corrected Calcium 8.6 mg/dL (8.5-10.1) 02/20/18 05:20 Total Bilirubin 0.20 mg/dL (0.2-1.0) 02/20/18 05:20 AST 17 Units/L (15-37) 02/20/18 05:20 ALT 25 Units/L (12-78) 02/20/18 05:20 Alkaline Phosphatase 95 Units/L (46-116) 02/20/18 05:20 C-Reactive Protein 6.80 mg/L (0-3.0) H 02/20/18 12:36 Total Protein 6.7 g/dL (6.4-8.2) 02/20/18 05:20 Albumin 2.9 g/dL (3.4-5.0) L 02/20/18 05:20 Globulin 3.8 g/dL (2.5-4.5) 02/20/18 05:20 Albumin/Globulin Ratio 0.8 Ratio (1.1-2.1) L 02/20/18 05:20 Amylase 75 Units/L (25-115) 02/16/18 11:55 Lipase 237 Units/L (73-393) 02/16/18 11:55 Free T4 1.55 ng/dL (0.76-1.46) H 02/20/18 12:36 TSH 3rd Generation 1.149 uIU/mL (0.358-3.74) 02/20/18 12:36 HCG, Qual Negative <10 mIU/mL 02/16/18 11:55 Specimen Type Clean catch urine 02/20/18 14:25 Urine Color Straw (YELLOW) 02/20/18 14:25 Urine Appearance Clear (CLEAR) 02/20/18 14:25 Urine pH 7.0 (5.0 - 8.0) 02/20/18 14:25 Ur Specific [place] 1.005 (1.000-1.030) 02/20/18 14:25 Urine Protein Negative (NEGATIVE) 02/20/18 14:25 Urine Glucose (UA) Negative (NEGATIVE) 02/20/18 14:25 Urine Ketones Negative (NEGATIVE) 02/20/18 14:25 Urine Occult Blood Negative (NEGATIVE) 02/20/18 14:25 Urine Nitrite Negative (NEGATIVE) 02/20/18 14:25 Urine Bilirubin Negative (NEGATIVE) 02/20/18 14:25 Urine Urobilinogen Normal (NORMAL) 02/20/18 14:25 Ur Leukocyte Esterase Negative (NEGATIVE) 02/20/18 14:25 Urine RBC 10-20 /HPF (NONE SEEN) 02/16/18 11:43 Urine WBC 3-5 /HPF (NONE SEEN) 02/16/18 11:43 Ur Squamous Epith Cells Few /HPF (NEGATIVE) 02/16/18 11:43 Urine Bacteria Trace /HPF (NEGATIVE) 02/16/18 11:43 Ur Culture Indicated? No/not indicated 02/16/18 11:43 Stool Description 10g drk yellow lqd 02/18/18 21:16 Stl Occult Blood (IFOB) Negative (NEGATIVE) 02/18/18 21:16 Stool for White Cells Positive (NEGATIVE) A 02/17/18 15:06 Stl C. diff Tox B Gene Negative (NEGATIVE) 02/17/18 15:06 Stl C. diff [id number] Negative (NEGATIVE) 02/17/18 15:06 Cryptosporid parvum Ag Negative (NEGATIVE) 02/17/18 15:06 E. histolytica Antigen Negative (NEGATIVE) 06/01/18 15:06 Giardia lamblia Ag Negative (NEGATIVE) 02/17/18 15:06 - Plan (1) Abdominal pain Status: Acute Plan: IV CIPRO STARTED THIS AM AND IV ZOYSN. IV HYDRATION. AM LABS CBC CMP,. PAIN AND NAUSEA CONTROL. UA, REPEAT SED RATE CRP. STOOL STUDIES, CT ABD PELVIS Q AM PENDING DUE AM INSURANCE (2) Nausea & vomiting Status: Acute (3) Diarrhea Status: Acute Plan: STOOL STUDIES
[2018-02-20] MEDS ORDERED: K-DUR TAB 20 MEQ PO SCH (19:00)
[2018-02-20] MEDS: TUMS PO SCH (20:41)
[2018-02-20] MEDS ORDERED: NS 1000 ML 1,000 ML IV SCH (21:00)
[2018-02-21] MEDS: ZOSYN VIAL 4.5 GRAMS 4.5 G in NS 100 ML IV + SPIKE MINIBAG* 100 ML IV SCH ×3 (06:15→22:59)
[2018-02-21] MEDS ORDERED: POTASSIUM CHL 40 MEQ/NS 0.45% 500 ML IV PRN (07:23)
[2018-02-21] MEDS ORDERED: POTASSIUM CHL 60 MEQ/NS 0.45% 500 ML IV PRN (07:23)
[2018-02-21] MEDS ORDERED: K-LYTE EFFERVESCENT PO PRN (07:23)
[2018-02-21] MEDS ORDERED: POTASSIUM CHLORIDE LIQ 20 MEQ UDC PO PRN (07:23)
[2018-02-21] MEDS ORDERED: MAGNESIUM SULFATE 1 GRAM/100 mL PREMIX 1 GM/100 ML BAG IV PRN (07:23)
[2018-02-21 08:52] LABS: ALANINE AMINOTRANSFERASE 30 Units/L (12-78); ALBUMIN 2.9 g/dL (3.4-5.0); ALKALINE PHOSPHATASE 96 Units/L (46-116); ASPARTATE AMINO TRANSFERASE 17 Units/L (15-37); BASOPHILS # (AUTO) 0.1 X10^3/uL (0.0-0.1); BASOPHILS % (AUTO) 0.7 % (0.2-1.0); CALCIUM 8.3 mg/dL (8.5-10.1); CARBON DIOXIDE 25.7 mmol/L (21-32); CHLORIDE 105 mmol/L (98-107); COR CA(FOR HYPOALB) 9.2 mg/dL (8.5-10.1); CREATININE 0.85 mg/dL (0.55-1.02); EOSINOPHILS # (AUTO) 0.4 x10^3/uL (0.0-0.2); EOSINOPHILS % (AUTO) 3.1 % (0.9-2.9); HEMATOCRIT 32.2 % (36.0-47.0); HEMOGLOBIN 11.1 g/dL (12.0-16.0); LYMPHOCYTES % (AUTO) 24.1 % (21.0-51.0); MEAN CORPUSCULAR HEMOGLOBIN 28.4 pg (27.0-34.0); MEAN CORPUSCULAR HGB CONC 34.5 g/dL (33.0-35.0); MEAN CORPUSCULAR VOLUME 82.2 fL (80.0-100.0); MONOCYTES # (AUTO) 0.6 x10^3/uL (0.3-0.8); MONOCYTES % (AUTO) 5.2 % (0.0-13.0); NEUTROPHILS # (AUTO) 8.3 x10^3/uL (2.2-4.8); NEUTROPHILS % (AUTO) 66.9 % (42.0-75.0); PLATELET COUNT 310 X10^3/uL (150.0-450.0); RED BLOOD COUNT 3.91 X10^6/uL (3.5-5.4); SODIUM 140 mmol/L (136-145); TOTAL PROTEIN 6.4 g/dL (6.4-8.2); WHITE BLOOD COUNT 12.3 X10^3/uL (3.6-10.0); eGFR NON BLACK RACES > 60 (>60)
[2018-02-21 08:57] LABS: BLOOD UREA NITROGEN 8 mg/dL (7-18)
[2018-02-21] MEDS: K-RIDER 10 MEQ/NS 100 ML 10 MEQ/100 ML BAG IV PRN ×2 (09:10→10:41)
[2018-02-21] MEDS ORDERED: TORADOL 30 MG VIAL IVP NR (10:00)
[2018-02-21] MEDS: CIPRO IV 400 MG PREMIX* 400 MG/200 ML IV.SOLN. IV SCH ×2 (10:11→21:07)
[2018-02-21] MEDS: TUMS PO SCH (10:12)
--- NOTE | 2018-02-21 14:40 | NM ---
Indication: Pain Exam: Nuclear medicine HIDA scan with ejection fraction Technique: The patient was injected with 5.5 mCi of Tc 99 M Choletec IV in dynamic and delayed images were obtained. Findings: There is physiologic uptake throughout the liver with no focal defects. There is uptake in the gallbladder within 1 hour with slight delayed excretion into the small bowel. The patient was the n given 8 oz of Ensure Plus and a gallbladder ejection fraction was calculated at 11.3% with normal c onsidered greater than 35%. Impression: Slight delayed excretion into the small bowel and abnormally decreased gallbladder ejecti on fraction suggestive of biliary dyskinesia. Reported By:
--- NOTE | 2018-02-21 17:50 | PCM.PROG ---
Progress Note - Progress Note for Day of Date: 02/21/18 - Subjective Subjective: 32 WF ER ADMISSION ON 02/16 WITH NVD, WEAKNESS, DEHYDRATION. PT WBC IMPROVING, PT DENIES PAIN AND IMPROVING NAUSEA. PT CONTINUES WITH LOOSE STOOL, REPORTING MUCOUS IN STOOL LAST PM. PT WBC DECREASED TO 12.3. PT HAD CT SCAN LAST PM REVIEWED RESULTS WITH PT AND FAMILY, STERLING FOR THIS AM - Past Medical Family Social History Past Med/Fam/Surg Hx: No changes since H&P Allergies: Allergies bacitracin Adverse Reaction (Verified 02/16/18 11:31) neomycin Adverse Reaction (Verified 02/16/18 11:31) - Vital Signs and I&O's Vital Signs: Temperature 98.3 F Pulse Rate [Right Brachial] 60 Pulse Rate 89 Respiratory Rate 17 Blood Pressure [Left Arm] 117/83 Blood Pressure [Right Thigh] 115/68 Blood Pressure [Right Arm] 140/94 Blood Pressure 109/58 O2 Sat by Pulse Oximetry 97 Intake and Output: Intake & Output 02/19/18 02/20/18 02/21/18 02/22/18 11:59 11:59 11:59 11:59 Intake Total 3404 / 3404 1620 / 1620 1470 / 1470 1029 / 1029 Balance 3404 / 3404 1620 / 1620 1470 / 1470 1029 / 1029 - Physical Exam Oriented: Normal Eyes: Normal Ear: Normal Nose: Normal Throat: Normal Respiratory: Normal Cardiovascular: Normal : Normal Auscultation: Bowel Sounds: Normal Tenderness: LUQ, Mild Skin: Normal Musculoskeletal: Normal Psychiatric: Normal Speech Pattern: Clear, Appropriate - Laboratory and Diagnostics Result Diagrams: 02/21/18 07:50 02/21/18 07:50 Labs: 02/18/18 21:16 Stool Stool Culture - Final 02/18/18 21:16 Stool - Final 02/17/18 15:06 Stool Stool Culture - Final 02/17/18 15:06 Stool - Final Laboratory WBC 12.3 X10^3/uL (3.6-10.0) H 02/21/18 07:50 RBC 3.91 X10^6/uL (3.5-5.4) 02/21/18 07:50 Hgb 11.1 g/dL (12.0-16.0) L 02/21/18 07:50 Hct 32.2 % (36.0-47.0) L 02/21/18 07:50 MCV 82.2 fL (80.0-100.0) 02/21/18 07:50 MCH 28.4 pg (27.0-34.0) 02/21/18 07:50 MCHC 34.5 g/dL (33.0-35.0) 02/21/18 07:50 RDW 13.0 % (11.6-16.5) 02/21/18 07:50 Plt Count 310 X10^3/uL (150.0-450.0) 02/21/18 07:50 MPV 11.0 fL (7.4-11.0) 02/21/18 07:50 Neut % (Auto) 66.9 % (42.0-75.0) 02/21/18 07:50 Lymph % (Auto) 24.1 % (21.0-51.0) 02/21/18 07:50 [place] % (Auto) 5.2 % (0.0-13.0) 02/21/18 07:50 Eos % (Auto) 3.1 % (0.9-2.9) H 02/21/18 07:50 Baso % (Auto) 0.7 % (0.2-1.0) 02/21/18 07:50 Neut # (Auto) 8.3 x10^3/uL (2.2-4.8) H 02/21/18 07:50 Lymph # (Auto) 3.0 X10^3/uL (1.3-2.9) H 02/21/18 07:50 [place] # (Auto) 0.6 x10^3/uL (0.3-0.8) 02/21/18 07:50 Eos # (Auto) 0.4 x10^3/uL (0.0-0.2) H 02/21/18 07:50 Baso # (Auto) 0.1 X10^3/uL (0.0-0.1) 02/21/18 07:50 Absolute Nucleated RBC 0.0 /100WBC 02/21/18 07:50 ESR 25 MM/HOUR (0-20) H 02/20/18 12:36 Sodium 140 mmol/L (136-145) 02/21/18 07:50 Corrected Sodium TNP 02/21/18 07:50 Potassium 3.8 mmol/L (3.5-5.1) 02/21/18 07:50 Chloride 105 mmol/L (98-107) 02/21/18 07:50 Carbon Dioxide 25.7 mmol/L (21-32) 02/21/18 07:50 BUN 8 mg/dL (7-18) 02/21/18 07:50 Creatinine 0.85 mg/dL (0.55-1.02) 02/21/18 07:50 Est GFR (MDRD) Af Amer > 60 (>60) 02/21/18 07:50 Est GFR (MDRD) Non-Af > 60 (>60) 02/21/18 07:50 Glucose 89 mg/dL (65-99) 02/21/18 07:50 Lactic Acid 1.1 mmol/L (0.4-2.0) 02/20/18 12:36 Calcium 8.3 mg/dL (8.5-10.1) L 02/21/18 07:50 Corrected Calcium 9.2 mg/dL (8.5-10.1) 02/21/18 07:50 Magnesium 1.9 mg/dL (1.7-2.9) 02/21/18 07:50 Total Bilirubin 0.30 mg/dL (0.2-1.0) 02/21/18 07:50 AST 17 Units/L (15-37) 02/21/18 07:50 ALT 30 Units/L (12-78) 02/21/18 07:50 Alkaline Phosphatase 96 Units/L (46-116) 02/21/18 07:50 C-Reactive Protein 6.80 mg/L (0-3.0) H 02/20/18 12:36 Total Protein 6.4 g/dL (6.4-8.2) 02/21/18 07:50 Albumin 2.9 g/dL (3.4-5.0) L 02/21/18 07:50 Globulin 3.5 g/dL (2.5-4.5) 02/21/18 07:50 Albumin/Globulin Ratio 0.8 Ratio (1.1-2.1) L 02/21/18 07:50 Amylase 75 Units/L (25-115) 02/16/18 11:55 Lipase 237 Units/L (73-393) 02/16/18 11:55 Free T4 1.55 ng/dL (0.76-1.46) H 02/20/18 12:36 TSH 3rd Generation 1.149 uIU/mL (0.358-3.74) 02/20/18 12:36 HCG, Qual Negative <10 mIU/mL 02/16/18 11:55 Specimen Type Clean catch urine 02/20/18 14:25 Urine Color Straw (YELLOW) 02/20/18 14:25 Urine Appearance Clear (CLEAR) 02/20/18 14:25 Urine pH 7.0 (5.0 - 8.0) 02/20/18 14:25 Ur Specific [place] 1.005 (1.000-1.030) 02/20/18 14:25 Urine Protein Negative (NEGATIVE) 02/20/18 14:25 Urine Glucose (UA) Negative (NEGATIVE) 02/20/18 14:25 Urine Ketones Negative (NEGATIVE) 02/20/18 14:25 Urine Occult Blood Negative (NEGATIVE) 02/20/18 14:25 Urine Nitrite Negative (NEGATIVE) 02/20/18 14:25 Urine Bilirubin Negative (NEGATIVE) 02/20/18 14:25 Urine Urobilinogen Normal (NORMAL) 02/20/18 14:25 Ur Leukocyte Esterase Negative (NEGATIVE) 02/20/18 14:25 Urine RBC 10-20 /HPF (NONE SEEN) 02/16/18 11:43 Urine WBC 3-5 /HPF (NONE SEEN) 02/16/18 11:43 Ur Squamous Epith Cells Few /HPF (NEGATIVE) 02/16/18 11:43 Urine Bacteria Trace /HPF (NEGATIVE) 02/16/18 11:43 Ur Culture Indicated? No/not indicated 02/16/18 11:43 Stool Description 10g drk yellow lqd 02/18/18 21:16 Stl Occult Blood (IFOB) Negative (NEGATIVE) 02/18/18 21:16 Stool for White Cells Positive (NEGATIVE) A 02/17/18 15:06 Stl C. diff Tox B Gene Negative (NEGATIVE) 02/17/18 15:06 Stl C. diff [id number]-BI Negative (NEGATIVE) 02/17/18 15:06 Cryptosporid parvum Ag Negative (NEGATIVE) 02/17/18 15:06 E. histolytica Antigen Negative (NEGATIVE) 02/17/18 15:06 Giardia lamblia Ag Negative (NEGATIVE) 02/17/18 15:06 - Plan (1) Abdominal pain Status: Acute Plan: IV CIPRO AND IV ZOYSN. IV HYDRATION. AM LABS CBC CMP,. PAIN AND NAUSEA CONTROL. UA, CT ABD PELVIS WITH CONTRAST RESULTS ON CHART. HIDA SCAN THIS AM (2) Nausea & vomiting Status: Acute (3) Diarrhea Status: Acute Plan: STOOL STUDIES
[2018-02-21] MEDS ORDERED: NS 100 ML IV + SPIKE MINIBAG* 100 ML IV ONE (22:54)
[2018-02-21] MEDS ORDERED: ZOSYN VIAL 4.5 GRAMS IV ONE (22:54)
[2018-02-22] MEDS ORDERED: ZOSYN VIAL 4.5 GRAMS IV ONE (05:45)
[2018-02-22] MEDS ORDERED: NS 100 ML IV + SPIKE MINIBAG* 100 ML IV ONE (05:46)
[2018-02-22 06:16] LABS: BASOPHILS # (AUTO) 0.1 X10^3/uL (0.0-0.1); BASOPHILS % (AUTO) 1.1 % (0.2-1.0); EOSINOPHILS # (AUTO) 0.5 x10^3/uL (0.0-0.2); EOSINOPHILS % (AUTO) 4.9 % (0.9-2.9); HEMATOCRIT 30.6 % (36.0-47.0); HEMOGLOBIN 10.7 g/dL (12.0-16.0); LYMPHOCYTES # (AUTO) 3.8 X10^3/uL (1.3-2.9); LYMPHOCYTES % (AUTO) 33.7 % (21.0-51.0); MEAN CORPUSCULAR HEMOGLOBIN 28.8 pg (27.0-34.0); MEAN CORPUSCULAR HGB CONC 35.1 g/dL (33.0-35.0); MEAN CORPUSCULAR VOLUME 82.1 fL (80.0-100.0); MEAN PLATELET VOLUME 10.7 fL (7.4-11.0); MONOCYTES # (AUTO) 0.7 x10^3/uL (0.3-0.8); MONOCYTES % (AUTO) 6.4 % (0.0-13.0); NEUTROPHILS % (AUTO) 53.9 % (42.0-75.0); PLATELET COUNT 311 X10^3/uL (150.0-450.0); RED BLOOD COUNT 3.73 X10^6/uL (3.5-5.4); RED CELL DISTRIBUTION WIDTH 12.9 % (11.6-16.5); WHITE BLOOD COUNT 11.1 X10^3/uL (3.6-10.0)
[2018-02-22 06:24] LABS: ALANINE AMINOTRANSFERASE 37 Units/L (12-78); ALBUMIN 2.8 g/dL (3.4-5.0); ALKALINE PHOSPHATASE 95 Units/L (46-116); ASPARTATE AMINO TRANSFERASE 21 Units/L (15-37); BLOOD UREA NITROGEN 12 mg/dL (7-18); CALCIUM 8.1 mg/dL (8.5-10.1); CARBON DIOXIDE 25.3 mmol/L (21-32); CHLORIDE 106 mmol/L (98-107); COR CA(FOR HYPOALB) 9.1 mg/dL (8.5-10.1); CREATININE 0.98 mg/dL (0.55-1.02); SODIUM 141 mmol/L (136-145); TOTAL PROTEIN 6.5 g/dL (6.4-8.2); eGFR NON BLACK RACES > 60 (>60)
[2018-02-22] MEDS: ZOSYN VIAL 4.5 GRAMS 4.5 G in NS 100 ML IV + SPIKE MINIBAG* 100 ML IV SCH (07:13)
--- NOTE | 2018-02-22 08:20 | US ---
HISTORY: Right upper quadrant pain, abnormal HIDA scan Study: Gallbladder ultrasound Comparison: CT scan of the abdomen done 02/20/2018 and hepatobiliary scan of the abdomen done 018. Technique: Grayscale and color Doppler imaging of the right upper abdominal quadrant is provided. Findings: The gallbladder is well seen. No evidence of gallstone, gallbladder wall thickening or pericholecysti c fluid is seen. Common bile duct measures 4 mm in caliber. Color Doppler studies are normal. The vis ualized liver, pancreas, IVC and right kidney normal. IMPRESSION: Normal gallbladder ultrasound. Reported By:
[2018-02-22] MEDS: CIPRO IV 400 MG PREMIX* 400 MG/200 ML IV.SOLN. IV SCH (09:31)
[2018-02-22] MEDS: TUMS PO SCH (09:31)
[2018-02-22] MEDS ORDERED: ZOFRAN INJ 4 MG VIAL IVP PRN (11:08)
[2018-02-22] MEDS ORDERED: PEPCID 20 MG IV PREMIX* 20 MG/50 ML BAG IV PRN (11:08)
[2018-02-22] MEDS ORDERED: TYLENOL 325 MG TAB PO PRN (11:08)
[2018-02-22] MEDS ORDERED: TORADOL 30 MG VIAL IVP PRN (11:09)
[2018-02-22] MEDS ORDERED: MAGNESIUM SULFATE 1 GRAM/100 mL PREMIX 1 GM/100 ML BAG IV PRN (11:10)
[2018-02-22] MEDS ORDERED: K-RIDER 10 MEQ/NS 100 ML 10 MEQ/100 ML BAG IV PRN (11:10)
[2018-02-22] MEDS ORDERED: POTASSIUM CHL 60 MEQ/NS 0.45% 500 ML IV PRN (11:11)
[2018-02-22] MEDS ORDERED: POTASSIUM CHLORIDE LIQ 20 MEQ UDC PO PRN (11:11)
[2018-02-22] MEDS ORDERED: K-LYTE EFFERVESCENT PO PRN (11:11)
[2018-02-22] MEDS ORDERED: POTASSIUM CHL 40 MEQ/NS 0.45% 500 ML IV PRN (11:11)
[2018-02-22 12:00] VITALS: BP 115/65
[2018-02-22] MEDS ORDERED: NS 1000 ML 1,000 ML IV SCH ×2 (12:00)
[2018-02-22] MEDS ORDERED: TORADOL 30 MG VIAL IVP NR (12:00)
[2018-02-22] MEDS ORDERED: NS 1000 ML 1,000 ML IV ONE ×2 (12:00)
[2018-02-22] MEDS ORDERED: ZOFRAN INJ 4 MG VIAL IVP ONE (12:00)
[2018-02-22] MEDS ORDERED: ZOSYN VIAL 4.5 GRAMS 4.5 G in NS 100 ML IV + SPIKE MINIBAG* 100 ML IV SCH (14:00)
[2018-02-22] MEDS ORDERED: CIPRO IV 400 MG PREMIX* 400 MG/200 ML IV.SOLN. IV SCH (21:00)
[2018-02-23] MEDS ORDERED: TUMS PO SCH (09:00)
[2018-02-23] MEDS ORDERED: K-DUR TAB 20 MEQ PO SCH (09:00)
--- NOTE | 2018-03-14 22:48 | PCM.DCPLAN ---
Discharge Summary - Admission Date Date of Admission: 02/19/18 - Discharge Date Discharge Date: 02/22/18 - Admission Diagnoses (1) Biliary dyskinesia Status: Acute (2) Abdominal pain Status: Acute (3) Diarrhea Status: Acute (4) Nausea & vomiting Status: Acute - Discharge Diagnoses Discharge Diagnosis: SAME ABOVE - Discharge Medications Discharge Medications: Home Medication List NK 02/16/18 [History] ciprofloxacin HCl [Cipro] 500 mg PO BID #20 tab 02/22/18 [Rx] metronidazole [Flagyl] 500 mg PO BID #20 tab 02/22/18 [Rx] Prescriptions: ciprofloxacin HCl [Cipro] HARDEEP,WILLIAM metronidazole [Flagyl] HARDEEP,WILLIAM - Hospital Course Vital Signs: Temperature 98.4 F Pulse Rate [Right Brachial] 67 Pulse Rate 89 Respiratory Rate 18 Blood Pressure [Left Arm] 115/65 Blood Pressure [Right Thigh] 115/68 Blood Pressure [Right Arm] 140/94 Blood Pressure 109/58 O2 Sat by Pulse Oximetry 96 Latest Lab Results: Laboratory Last Values WBC 11.1 X10^3/uL (3.6-10.0) H 02/22/18 04:27 RBC 3.73 X10^6/uL (3.5-5.4) 02/22/18 04:27 Hgb 10.7 g/dL (12.0-16.0) L 02/22/18 04:27 Hct 30.6 % (36.0-47.0) L 02/22/18 04:27 MCV 82.1 fL (80.0-100.0) 02/22/18 04:27 MCH 28.8 pg (27.0-34.0) 02/22/18 04:27 MCHC 35.1 g/dL (33.0-35.0) H 02/22/18 04:27 RDW 12.9 % (11.6-16.5) 02/22/18 04:27 Plt Count 311 X10^3/uL (150.0-450.0) 02/22/18 04:27 MPV 10.7 fL (7.4-11.0) 02/22/18 04:27 Neut % (Auto) 53.9 % (42.0-75.0) 02/22/18 04:27 Lymph % (Auto) 33.7 % (21.0-51.0) 02/22/18 04:27 [place] % (Auto) 6.4 % (0.0-13.0) 02/22/18 04:27 Eos % (Auto) 4.9 % (0.9-2.9) H 02/22/18 04:27 Baso % (Auto) 1.1 % (0.2-1.0) H 02/22/18 04:27 Neut # (Auto) 6.0 x10^3/uL (2.2-4.8) H 02/22/18 04:27 Lymph # (Auto) 3.8 X10^3/uL (1.3-2.9) H 02/22/18 04:27 [place] # (Auto) 0.7 x10^3/uL (0.3-0.8) 02/22/18 04:27 Eos # (Auto) 0.5 x10^3/uL (0.0-0.2) H 02/22/18 04:27 Baso # (Auto) 0.1 X10^3/uL (0.0-0.1) 02/22/18 04:27 Absolute Nucleated RBC 0.0 /100WBC 02/22/18 04:27 ESR 25 MM/HOUR (0-20) H 02/20/18 12:36 Sodium 141 mmol/L (136-145) 02/22/18 04:27 Corrected Sodium TNP 02/22/18 04:27 Potassium 3.5 mmol/L (3.5-5.1) 02/22/18 04:27 Chloride 106 mmol/L (98-107) 02/22/18 04:27 Carbon Dioxide 25.3 mmol/L (21-32) 02/22/18 04:27 BUN 12 mg/dL (7-18) 02/22/18 04:27 Creatinine 0.98 mg/dL (0.55-1.02) 02/22/18 04:27 Est GFR (MDRD) Af Amer > 60 (>60) 02/22/18 04:27 Est GFR (MDRD) Non-Af > 60 (>60) 02/22/18 04:27 Glucose 92 mg/dL (65-99) 02/22/18 04:27 Lactic Acid 1.1 mmol/L (0.4-2.0) 02/20/18 12:36 Calcium 8.1 mg/dL (8.5-10.1) L 02/22/18 04:27 Corrected Calcium 9.1 mg/dL (8.5-10.1) 02/22/18 04:27 Magnesium 1.9 mg/dL (1.7-2.9) 02/21/18 07:50 Total Bilirubin 0.20 mg/dL (0.2-1.0) 02/22/18 04:27 AST 21 Units/L (15-37) 02/22/18 04:27 ALT 37 Units/L (12-78) 02/22/18 04:27 Alkaline Phosphatase 95 Units/L (46-116) 02/22/18 04:27 C-Reactive Protein 6.80 mg/L (0-3.0) H 02/20/18 12:36 Total Protein 6.5 g/dL (6.4-8.2) 02/22/18 04:27 Albumin 2.8 g/dL (3.4-5.0) L 02/22/18 04:27 Globulin 3.7 g/dL (2.5-4.5) 02/22/18 04:27 Albumin/Globulin Ratio 0.8 Ratio (1.1-2.1) L 02/22/18 04:27 Amylase 75 Units/L (25-115) 02/16/18 11:55 Lipase 237 Units/L (73-393) 02/16/18 11:55 Free T4 1.55 ng/dL (0.76-1.46) H 02/20/18 12:36 TSH 3rd Generation 1.149 uIU/mL (0.358-3.74) 02/20/18 12:36 HCG, Qual Negative <10 mIU/mL 02/16/18 11:55 Specimen Type Clean catch urine 02/20/18 14:25 Urine Color Straw (YELLOW) 02/20/18 14:25 Urine Appearance Clear (CLEAR) 02/20/18 14:25 Urine pH 7.0 (5.0 - 8.0) 02/20/18 14:25 Ur Specific [place] 1.005 (1.000-1.030) 02/20/18 14:25 Urine Protein Negative (NEGATIVE) 02/20/18 14:25 Urine Glucose (UA) Negative (NEGATIVE) 02/20/18 14:25 Urine Ketones Negative (NEGATIVE) 02/20/18 14:25 Urine Occult Blood Negative (NEGATIVE) 02/20/18 14:25 Urine Nitrite Negative (NEGATIVE) 02/20/18 14:25 Urine Bilirubin Negative (NEGATIVE) 02/20/18 14:25 Urine Urobilinogen Normal (NORMAL) 02/20/18 14:25 Ur Leukocyte Esterase Negative (NEGATIVE) 02/20/18 14:25 Urine RBC 10-20 /HPF (NONE SEEN) 02/16/18 11:43 Urine WBC 3-5 /HPF (NONE SEEN) 02/16/18 11:43 Ur Squamous Epith Cells Few /HPF (NEGATIVE) 02/16/18 11:43 Urine Bacteria Trace /HPF (NEGATIVE) 02/16/18 11:43 Ur Culture Indicated? No/not indicated 02/16/18 11:43 Stool Description 10g drk yellow lqd 02/18/18 21:16 Stl Occult Blood (IFOB) Negative (NEGATIVE) 02/18/18 21:16 Stool for White Cells Positive (NEGATIVE) A 02/17/18 15:06 Stl C. diff Tox B Gene Negative (NEGATIVE) 02/17/18 15:06 Stl C. diff [id number] Negative (NEGATIVE) 02/17/18 15:06 Cryptosporid parvum Ag Negative (NEGATIVE) 02/17/18 15:06 E. histolytica Antigen Negative (NEGATIVE) 02/17/18 15:06 Giardia lamblia Ag Negative (NEGATIVE) 02/17/18 15:06 Hospital Course: 32 WF ER ADMISSION AFTER PRESENTING WITH CO ABDOMINAL PAIN, NVD AND FEVER. PT STATES SHE FELT ILL FOR SEVERAL DAYS, WEAKNESS, LOW GRADE FEVER FATIGUE THEN PROGRESSED TO ABDOMINAL PAIN, NVD. PT DENIES ANY PMH OF INFLAMMATORY BOWEL DISEASE, HOWEVER HAS HAD "STOMACH PROBLEMS" FOR YEARS NO COLONSCOPY OR EGD. PT OTHERWISE HEALTHY. ABNORMAL CT ABD. PT ADMITTED FOR IV ATBX AND FURTHER EVALUATION FOR ACUTE ILLNESS. PATIENT HAD GALLBLADDER US AND HEPATOBILIARY SCAN. PATIENT NOTED TO HAVE BILIARY DYSKENSIA. SYMPTOMS IMPROVED AND PATIENT WAS DISCHARGED HOME TO BE FOLLOWED ON OP BASIS. - Discharge Plan Disposition: HOME, SELF-CARE Condition: Stable Prescriptions: ciprofloxacin HCl [Cipro] 500 mg PO BID #20 tab metronidazole [Flagyl] 500 mg PO BID #20 tab - Follow ups/Referrals Follow ups/Referrals: VALECNIA CLEARY [REFERRING] - 02/28/18 3:30 pm (REFERRAL FOR BILIARY DISKENESIA) MIKE MOYA [REFERRING] - 03/10/18 8:30 am TONY ROSAS [Nurse Practitioner] - 03/07/18 2:30 pm - Instructions Instructions: Abdominal Pain, Adult, Biliary Colic, Adult, Nausea and Vomiting , Adult, Hand Washing, [id number], Ciprofloxacin tablets, Metronidazole tablets or capsules Additional Instructions: RESUME HOME MEDS BLAND DIET INCREASE PO FLUIDS INTAKE F/U DR CALDERON IN ONE WEEK FOR HOSPITAL FOLLOW UP TONY ROSAS AT [facility] [place] PT REQUEST TO SEE DR ZAPIEN IN [place] FOR GASTRO EVALUATION PT TO F/U WITH DR VALENCIA CLEARY FOR SURGICAL EVALUATION FOR BILIARY DYSKENESIA Forms: Patient Portal
== END 2018-02-22 16:20 | disposition home or self-care (01) | DRG 392 ==
LOC: ER 11:36 → MED/SURG 15:24
PROVIDERS: ADMIT Internal Medicine; ATTEND Internal Medicine
DX: R11.2 Nausea with vomiting, unspecified; R70.0 Elevated erythrocyte sedimentation rate; R10.84 Generalized abdominal pain; R19.7 Diarrhea, unspecified; R93.2 Abnormal findings on diagnostic imaging of liver and biliary tract; R79.82 Elevated C-reactive protein (CRP); E86.0 Dehydration
CPT/HCPCS: 36415; 74176; 74177; 76705; 78227; 80053; 81001; 81003; 82150; 82270; 83605; 83630; 83690; 83735; 84439; 84443; 84703; 85025; 85652; 86140; 87045; 87328; 87329; 87336; 87427; 87449; 87493; 87899; 96365; 96367; 96374; 99231; 99282; 99284; A4216; A4222; A9537; S0028; G0378; J0696; J0744; J1885; J2405; J2543; J3480; J3490; J7030; J7050; J8499